=== PATIENT | female | born 1990 | race Hispanic/Latino ===

== ENCOUNTER → 2023-07-13 | Outpatient (CLI) | payer OTHER | LOC: M WHC 14:33 | PROVIDERS: ATTEND Advanced Practice Midwife | DX: O09.30 Supervision of pregnancy with insufficient antenatal care, unspecified trimester (principal); Z3A.23 23 weeks gestation of pregnancy ==

== ENCOUNTER 2023-08-27 15:11 | Outpatient (CLI) | payer OTHER ==
[~2023-08-27] VITALS: Ht 152.4 cm; Wt 61.3 kg
[~2023-08-27 15:11] MED LIST: ALBUTEROL SULFATE 2.5MG/0.5ML INH NEB SOLN INH PRN; EPINEPHrine INJ 1 MG/ML 1ML AMP IM PRN; NS 1,000 ML IV SCH; diphenhydrAMINE 50MG/ML VIAL IV PRN; methylPREDNISolone 125MG 2ML VIAL IV PRN
[2023-08-27 15:30] VITALS: BP 100/53; O2SAT 99
[2023-08-27] MEDS ORDERED: IRON SUCROSE 200 MG in NS 100 ML IV ONE ×4 (15:30)
[2023-08-27 17:20] VITALS: BP 91/55; O2SAT 100
== END 2023-08-27 17:20 ==
LOC: M INFU 15:11
PROVIDERS: ATTEND Advanced Practice Midwife
DX: D50.9 Iron deficiency anemia, unspecified (principal)
CPT/HCPCS: 96365; J1756

== ENCOUNTER 2023-09-03 15:25 | Outpatient (CLI) | payer OTHER ==
[~2023-09-03] VITALS: Ht 152.4 cm; Wt 61.4 kg
[2023-09-03 15:25] VITALS: BP 92/52; O2SAT 100
[~2023-09-03 15:25] MED LIST changes: -NS 1,000 ML IV SCH
[2023-09-03] MEDS ORDERED: IRON SUCROSE 200 MG in NS 100 ML OVER 1 HR IV ONE (15:30)
[2023-09-03] MEDS ORDERED: NS 1,000 ML IV SCH (15:30)
[2023-09-03 16:45] VITALS: BP 93/52; O2SAT 98
== END 2023-09-03 16:47 ==
LOC: M INFU 15:25
PROVIDERS: ATTEND Advanced Practice Midwife
DX: D50.9 Iron deficiency anemia, unspecified (principal)
CPT/HCPCS: 96365; J1756

== ENCOUNTER 2023-09-20 15:50 | Outpatient (CLI) | payer OTHER ==
[~2023-09-20] VITALS: Ht 154.9 cm; Wt 59.0 kg
[~2023-09-20 15:50] MED LIST changes: +IRON SUCROSE 200 MG in NS 100 ML OVER 1 HR IV ONE; +NS 1,000 ML IV SCH
[2023-09-20 16:03] VITALS: BP 107/52; O2SAT 100
[2023-09-20 17:38] VITALS: BP 91/52; O2SAT 98
== END 2023-09-20 17:50 | disposition home or self-care (01) ==
LOC: M INFU 15:50
PROVIDERS: ATTEND Advanced Practice Midwife
DX: D50.9 Iron deficiency anemia, unspecified (principal)
CPT/HCPCS: 96365; J1756

== ENCOUNTER 2023-10-08 12:41 | Outpatient (CLI) | payer OTHER | END 2023-10-08 13:00 | disposition home or self-care (01) | LOC: M LDO 12:41 | PROVIDERS: ATTEND Obstetrics & Gynecology | DX: O26.643 Intrahepatic cholestasis of pregnancy, third trimester (principal); Z3A.35 35 weeks gestation of pregnancy; O41.03X0 Oligohydramnios, third trimester, not applicable or unspecified ==

== ENCOUNTER → 2023-10-08 | Outpatient (CLI) | payer OTHER | LOC: M RAD 11:45 | PROVIDERS: ATTEND Obstetrics & Gynecology | DX: O26.643 Intrahepatic cholestasis of pregnancy, third trimester (principal); Z3A.35 35 weeks gestation of pregnancy ==

== ENCOUNTER 2023-10-16 09:14 | Inpatient (IN) | payer OTHER ==
[2023-10-16] VITALS (10 sets, daily range): BP systolic 90–113; BP diastolic 51–71
[~2023-10-16] VITALS: Ht 152.4 cm; Wt 62.5 kg
[~2023-10-16 09:14] MED LIST changes: +**PENDING PCN ENTRY XX SCH; -ALBUTEROL SULFATE 2.5MG/0.5ML INH NEB SOLN INH PRN; -EPINEPHrine INJ 1 MG/ML 1ML AMP IM PRN; -IRON SUCROSE 200 MG in NS 100 ML OVER 1 HR IV ONE; -NS 1,000 ML IV SCH; -diphenhydrAMINE 50MG/ML VIAL IV PRN; -methylPREDNISolone 125MG 2ML VIAL IV PRN
[2023-10-16] MEDS ORDERED: OXYTOCIN DRIP 30 UNITS in IV 1 EA IV PRN ×6 (09:40)
[2023-10-16] MEDS ORDERED: URSO300C3 PO (09:40)
[2023-10-16] MEDS ORDERED: PENICILLIN G POTASSIUM 5 MU IV 5 MU in D5W MINI-BAG PLUS 100 ML IV STA (09:40)
[2023-10-16] MEDS ORDERED: LR 1,000 ML IV SCH ×2 (09:40)
[2023-10-16] MEDS ORDERED: PRENTAB9 PO (09:40)
[2023-10-16] MEDS ORDERED: TRANEXAMIC ACID INJection 1,000 MG in NS 100 ML IV PRN (09:40)
[2023-10-16] MEDS ORDERED: OXYTOCIN INJ 10UNITS/ML 1ML VIAL IV PRN (09:40)
[2023-10-16] MEDS ORDERED: FERR325T3 PO (09:40)
[2023-10-16] MEDS ORDERED: LIDOCAINE 1% MDV 20ML VIAL INFIL PRN (09:40)
[2023-10-16] MEDS ORDERED: OXYTOCIN DRIP 30 UNITS in IV 1 EA IV SCH (09:40)
[2023-10-16] MEDS ORDERED: CARBOPROST TROMETHAMINE 250 MCG/ML AMP IM PRN (09:40)
[2023-10-16] MEDS ORDERED: OXYTOCIN INJ 10UNITS/ML 1ML VIAL IM PRN (09:40)
[2023-10-16] MEDS ORDERED: METHYLERGONOVINE MALEATE 0.2MG/ML 1ML VIAL IM PRN (09:40)
[2023-10-16] MEDS ORDERED: LACTATED RINGER'S 1000 ML IV STA (09:40)
[2023-10-16] MEDS ORDERED: HOME MED LIST COMPLETE! XX SCH (11:30)
[2023-10-16 12:18] LABS: HEMATOCRIT 37.8 % (36.0-47.0); HEMOGLOBIN 12.1 g/dl (12.0-15.5); MEAN CORPUSCULAR HEMOGLOBIN 25.9 pg (27.0-33.0); MEAN CORPUSCULAR VOLUME 80.8 fl (80.0-96.0); PLATELET COUNT, AUTOMATED 242 10^3/uL (150-450); RED BLOOD COUNT 4.68 10^6/uL (4.00-5.40); WHITE BLOOD COUNT 8.7 10^3/uL (4.0-10.0)
[2023-10-16] MEDS ORDERED: PEN G POT 3,000,000 UNIT/50 ML 3,000,000 UNIT in IV 1 EA IV SCH (13:40)
[2023-10-16] MEDS: PEN G POT 3,000,000 UNIT/50 ML 3,000,000 UNIT in IV 1 EA IV SCH ×2 (17:36→22:25)
[2023-10-17] VITALS (12 sets, daily range): BP systolic 92–111; BP diastolic 51–62; O2SAT 98–100
[2023-10-17] MEDS: PEN G POT 3,000,000 UNIT/50 ML 3,000,000 UNIT in IV 1 EA IV SCH (01:30)
[2023-10-17] MEDS ORDERED: MOM 30ML SUSPENSION UDC PO PRN (04:15)
[2023-10-17] MEDS ORDERED: METHYLERGONOVINE MALEATE 0.2 MG TAB PO PRN (04:15)
[2023-10-17] MEDS ORDERED: DIBUCAINE 1% OINTMENT 30GM TOP PRN (04:15)
[2023-10-17] MEDS ORDERED: RHOGAM 300MCG (1500IU) INJ IM SCH (04:15)
[2023-10-17] MEDS ORDERED: ANUSOL HC CREAM 30GM TOP PRN (04:15)
[2023-10-17] MEDS: IBUPROFEN 800 MG TAB PO PRN ×2 (07:20→14:25)
[2023-10-17] MEDS ORDERED: PRENATAL VITAMINS CHEWABLE TABLET PO SCH (09:00)
[2023-10-17] MEDS: ACETAMINOPHEN 500 MG TAB PO PRN ×2 (09:17→18:37)
[2023-10-17] MEDS: FERROUS SULFATE 325MG TAB PO SCH (09:17)
[2023-10-17] MEDS: PRENATAL VITAMINS CHEWABLE TABLET PO SCH (09:17)
[2023-10-17] MEDS: DOCUSATE SODIUM 100MG CAPSULE PO SCH ×2 (09:17→20:09)
[2023-10-18 06:00] VITALS: BP 104/54; O2SAT 98
[2023-10-18] MEDS: FERROUS SULFATE 325MG TAB PO SCH (10:32)
[2023-10-18] MEDS: DOCUSATE SODIUM 100MG CAPSULE PO SCH (10:32)
[2023-10-18] MEDS: PRENATAL VITAMINS CHEWABLE TABLET PO SCH (10:32)
[2023-10-19] MEDS ORDERED: MEASLES,MUMPS,RUBELLA VACCINE INJ (MMR-II) SC.IMMUN ONE (09:00)
== END 2023-10-18 16:00 | disposition home or self-care (01) | DRG 806 ==
LOC: M LDI 09:14 → M OBS 10-17 06:10
PROVIDERS: ADMIT Obstetrics & Gynecology; ATTEND Obstetrics & Gynecology
PROC: 3E033VJ Introduction of Other Hormone into Peripheral Vein, Percutaneous Approach (ICD-10-PCS; 2023-10-16)
PROC: 10907ZC Drainage of Amniotic Fluid, Therapeutic from Products of Conception, Via Natural or Artificial Opening (ICD-10-PCS; 2023-10-16)
PROC: 10E0XZZ Delivery of Products of Conception, External Approach (ICD-10-PCS; principal; 2023-10-17)
PROC: 0HQ9XZZ Repair Perineum Skin, External Approach (ICD-10-PCS; 2023-10-17)
DX: O41.03X0 Oligohydramnios, third trimester, not applicable or unspecified (principal); Z37.0 Single live birth; Z3A.37 37 weeks gestation of pregnancy; O26.643 Intrahepatic cholestasis of pregnancy, third trimester; O34.211 Maternal care for low transverse scar from previous cesarean delivery; Z79.899 Other long term (current) drug therapy; O99.824 Streptococcus B carrier state complicating childbirth; O70.0 First degree perineal laceration during delivery